=== PATIENT | female | born 1975 | race Caucasian/White ===

== ENCOUNTER → 2019-04-06 | Day surgery (SDC) | payer OTHER ==
[~2019-04-06] MED LIST: ACETAMINOPHEN 325 MG TABLET PO PRN; ALBUTEROL SULFATE 2.5 MG/3 ML NEBU. NEB PRN; ATROPINE 0.5 MG/5 ML DISP.SYRIN. IV PRN; FEXO180T81 PO; IV RINGERS SOLUTION,LACTATED 1,000 ML IV SCH; LETR2.5T PO; LIDOCAINE 2% PF Vial for OR 5 ML VIAL. ONE; METF500T16 PO; MIDAZOLAM HCL PF 2 MG/2 ML VIAL. IV PRN; ONDANSETRON PF 4 MG/2 ML VIAL. IV PRN; PHENOL ORAL SPRAY 177ML BOTTLE. MM PRN; PROPOFOL 40 ML IV ONE; SODIUM PHOSPHATES 19/7GM 133 ML ENEMA. ONE; SODIUM PHOSPHATES 19/7GM 133 ML ENEMA. PR ONE; diphenhydrAMINE 50 MG/ML VIAL IV PRN
[2019-04-06 12:55] VITALS: BP 146/90
--- NOTE | 2019-04-10 12:06 | PATHOLOGY ---
[facility] Accession Number: [id number] . 01 Material submitted: . PART A: colon - DESCENDING COLON. Modifiers: descending PART B: sigmoid colon - SIGMOID POLYP . 01 Clinical history: . Family history colon cancer . 02 Diagnosis: A. Colon biopsy, descending colon polyp: - Tubular adenoma. . B. Colon biopsy, sigmoid polyp: - Serrated polyp/adenoma. . (JPM:farzaneh; 04/10/2019) QMS 04/10/2019 0850 Local . 02 Comment: There is no high-grade dysplasia or evidence of malignancy. . 02 Electronically signed: . Anselmo Koo MD, Pathologist NPI- [id number] . 01 Gross description: . A. Received in formalin labeled "Cindy, Kat, descending colon," and additionally labeled on the requisition as "polyp," is a single segment of rodriguez soft tissue measuring 0.4 cm in maximum dimension. The specimen is entirely submitted in cassette A1. . B. Received in formalin labeled "Cindy, Kat, sigmoid polyp," is a single segment of rodriguez soft tissue measuring 0.2 cm in maximum dimension. The specimen is entirely submitted in cassette B1. (TSD; 04/09/2019) TOB/TOB 04/10/2019 0849 Local . 02 Pathologist provided ICD-10: D12.4, D12.5 . 02 CPT . 678808, 185395 Specimen Comment: A courtesy copy of this report has been sent to [phone], [phone] Specimen Comment: [id number] Specimen Comment: Report sent to / DR RODRIGUEZ Specimen Comment: A duplicate report has been generated due to demographic updates. Performed at: 01 [facility] [place] [id number] [facility] [address], [place], [place] [id number] MD Dario Akbar MD Phone: [phone] Performed at: 02 [facility] [address] [place], [place] [id number] MD Anselmo Koo MD Phone: [phone]
== END ==
LOC: SURG 09:33
PROVIDERS: ATTEND Internal Medicine Gastroenterology
DX: R19.5 Other fecal abnormalities (principal); D12.4 Benign neoplasm of descending colon; D12.5 Benign neoplasm of sigmoid colon; E11.9 Type 2 diabetes mellitus without complications; E66.8 Other obesity; Z68.29 Body mass index [BMI] 29.0-29.9, adult; Z85.3 Personal history of malignant neoplasm of breast; Z80.0 Family history of malignant neoplasm of digestive organs; Z79.84 Long term (current) use of oral hypoglycemic drugs; Z90.710 Acquired absence of both cervix and uterus; Z87.891 Personal history of nicotine dependence
CPT/HCPCS: 45380; 45381; 45385; 82947; 88305; J2704; J7120; J2001